=== PATIENT | male | born 1970 | race Two or more races ===

== ENCOUNTER 2018-10-18 10:05 | Emergency (ER) | payer BC, OTHER ==
[~2018-10-18] VITALS: Ht 170.2 cm; Wt 75.7 kg
[2018-10-18 12:30] VITALS: BP 140/94
[2018-10-18 12:32] LABS: Basophils # (auto) 0 uL; Basophils % (auto) 0.2 % (0.0-2.0); Eosinophils # (auto) 0 uL; Eosinophils % (auto) 0.4 % (0.0-7.0); Hematocrit 43.1 % (41.0-53.0); Hemoglobin 14.5 g/dL (13.5-17.5); Lymphocytes # (auto) 1.2 uL; Lymphocytes % (auto) 10.2 % (10.0-50.0); Mean Corpuscular Hemoglobin 30.2 pg (28.0-32.0); Mean Corpuscular Hgb Conc. 33.7 g/dL (32.0-36.0); Mean Corpuscular Volume 89.6 fL (80.0-100.0); Monocytes % (auto) 8.7 % (0.0-12.0); Neutrophils # (auto) 9.2 uL; Neutrophils % (auto) 80.5 % (37.0-80.0); Platelet Count (auto) 259 10^3/uL (140-450); Red Blood Cells 4.81 10^6/uL (4.5-5.90); Red Cell Distribution Width 13.1 % (11.8-14.3); White Blood Cell 11.5 10^3/uL (4.4-10.8)
[2018-10-18 12:46] LABS: INR 0.96 (0.9-1.15); Partial Thromboplastin Time 28.7 sec (23.64-32.05)
[2018-10-18 13:20] LABS: Albumin 3.9 g/dL (3.4-5.0); Calcium 8.4 mg/dL (8.5-10.1); Potassium 3.7 mmol/L (3.5-5.1)
[2018-10-18 13:24] LABS: BUN/Creatinine Ratio 14.6; Bilirubin, Total 0.3 mg/dL (0.2-1.0); Total Protein 7.2 g/dL (6.4-8.2)
== END 2018-10-18 12:37 | disposition short-term general hospital (02) ==
LOC: EDBD 10:05 → ER 10:26
DX: S01.01XA Laceration without foreign body of scalp, initial encounter (principal); V45.5XXA Car driver injured in collision with railway train or railway vehicle in traffic accident, initial encounter; Y93.I9 Activity, other involving external motion; Y92.89 Other specified places as the place of occurrence of the external cause; Y99.8 Other external cause status
CPT/HCPCS: 36415; 70450; 80053; 85025; 85610; 85730